=== PATIENT | male | born 1955 | race Caucasian/White ===

== ENCOUNTER 2022-03-30 07:33 | Outpatient (CLI) | payer BC, SELFPAY ==
[2022-03-30 13:48] LABS: Uric Acid* 6.5 mg/dL (2.2-8.4)
[2022-03-30 15:11] LABS: Albumin* 4.3 g/dL (3.3-5.0); Chloride* 105 mmol/L (96-114)
[2022-03-30 15:12] LABS: Potassium* 4.3 mmol/L (3.6-5.1); Sodium* 140 mmol/L (135-149)
[2022-03-30 15:14] LABS: Aspartate Amino Transferase* 28 U/L (12-35); Blood Urea Nitrogen* 15 mg/dL (7-30); Carbon Dioxide* 24 mmol/L (20-32); Cholesterol* 154 mg/dL (90-199); Estimated Glomerular Filt Rate 82 ml/min; Glucose* 135 mg/dL (60-115); Total Protein* 7.4 g/dL (6.0-8.3)
[2022-03-30 15:15] LABS: Alanine Aminotransferase* 26 U/L (4-50); Alkaline Phosphatase* 97 U/L (40-150); Calcium* 9.2 mg/dL (8.4-10.6); HDL Cholesterol* 30 mg/dL (>=40); LDL Cholesterol Calculated 81 mg/dL (<100); Triglycerides* 215 mg/dL (40-149)
[2022-03-30 15:44] LABS: PSA Screen* 1.51 ng/mL (0.10-4.00)
== END 2022-03-30 07:34 | disposition home or self-care (01) ==
PROVIDERS: PCP Family Medicine; Visit Provider Family Medicine
DX: Z00.00 Encounter for general adult medical examination without abnormal findings (principal); M10.9 Gout, unspecified; N40.1 Benign prostatic hyperplasia with lower urinary tract symptoms; R35.1 Nocturia; Z12.5 Encounter for screening for malignant neoplasm of prostate; R73.09 Other abnormal glucose; E66.01 Morbid (severe) obesity due to excess calories; I10 Essential (primary) hypertension
CPT/HCPCS: 80053; 80061; 84153; 84550

== ENCOUNTER 2023-04-30 07:45 | Outpatient (CLI) | payer BC, SELFPAY | END 2023-04-30 07:46 | disposition home or self-care (01) | PROVIDERS: PCP Family Medicine; Visit Provider Family Medicine | DX: E78.2 Mixed hyperlipidemia (principal); Z12.5 Encounter for screening for malignant neoplasm of prostate; E11.9 Type 2 diabetes mellitus without complications; Z11.59 Encounter for screening for other viral diseases | CPT/HCPCS: 80053; 80061; 82043; 82570; 86803; G0103 ==

== ENCOUNTER 2023-05-03 09:46 | Outpatient (RCR) | payer BC, SELFPAY ==
[2023-05-03 07:44] VITALS: BMI 55.0
[2023-05-03 12:38] VITALS: BMI 55.0
--- NOTE | 2023-05-03 13:56 | OT.OPLE2 ---
OT Outpatient Lymphedema Eval* OT Outpatient Lymphedema Eval* Start: 05/03/23 07:43 Freq: Status: Active Protocol: Document 05/03/23 07:44 LINDA (Rec: 05/03/23 12:38 LINDA [id number]) E-signed By Debbie Vasquez OTR/L, CLT OT Outpatient Evaluation Details Type Type Eval Complexity Medium Insurance Information Insurance Information Insurance Information Blue [employer] Insurance Information Comments PATIENT DOES NOT HAVE MEDICARE Height and Weight Height Height 189.23 cm Weight Weight 196.859 kg Weight Measurement Method Per H & P BMI Body Mass Index (kg/m?) 55.0 BMI Classification Extreme Obesity Obesity Class III OT OP Lymphedema Evaluation Current Condition/Medical Diagnosis Referring Provider Dr. Mali Villanueva Treatment Diagnosis Lymphedema, I89.0 Date Of Onset Chronic Other Precautions Allergies (copied from chart) bacitracin Allergy (Mild, Verified 04/30/23 10:56); neomycin Allergy (Mild, Verified 04/30/23 10:56) dermatitis; polymyxin B Allergy (Mild, Verified 10:56); probenecid Allergy (Mild, Verified 04/30/23 10:56 ) Cramping of the Muscles furosemide Adverse Reaction ( Severe, Verified 04/30/23 10: 56) swelling in legs, stinging sensation Medical History Medical History Comments Hemoglobin A1c 6.4 % on: 04/30 E66.01 - Morbid (severe) obesity due to excess calories (ICD-10)- Body mass index [ BMI] 50.0-59.9 Gout (Acute 07/29/09) M10.9 - Gout, unspecified (ICD -10) New onset type 2 diabetes mellitus (Acute)-Type 2 diabetes mellitus without complications (ICD-10) Lymphedema (Acute) Aortic dilatation (Acute) 2019 , 4.2 cm- Aortic ectasia, unspecified site (ICD-10) E78.5 - Hyperlipidemia, unspecified (ICD-10) Obstructive sleep apnea syndrome (Acute)-unsure when last sleep study, uses cpap Morbid obesity (Acute 09/24/12 )- obesity due to excess calories (ICD-10) Hypertension (Acute 07/29/09)- Essential (primary) hypertension (ICD-10) Heart murmur (Acute 05/13/13) likely 2/2 rheumatic fever Benign prostatic hyperplasia w /nocturia (Acute 04/09/13)- Benign prostatic hyperplasia w / lower urinary tract symptoms (ICD-10) Allergic rhinitis (Acute) Atrial fibrillation (Acute)- Unspecified atrial fibrillation (ICD-10) residential (current) use of anticoagulants (Acute) Medications Medications allopurinol 300 mg PO BID atenolol 100 mg PO BID compression stockings, knee length, x-lrg fluticasone propionate 50 mcg/ actuation 1 - 2 intranasal DAILY hydrochlorothiazide 12.5 mg PO QAM indomethacin 50 mg PO TID PRN lisinopril 40 mg PO DAILY mupirocin 2% 1 applic topical BID PRN simvastatin 20 mg PO Bedtime tamsulosin 0.8 mg (2 x 0.4 mg) PO DAILY warfarin 3 mg See Protocol PO DAILY Contraindications Contraindications General Family History Family History of Lymphedema No 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 Current Work Status Comments 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, 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 [place] Subjective Subjective I work too many hours to come into the clinic for therapy sessions I'll order the compression socks you recommend online Living Situation Current Living Situation Home With Spouse Or SO Current Living Situation Comments 2 Adult sons, Malcolm and Navjot Patient Difficulties Difficulties With Any Of The Following Walking,Dressing,Reaching Feet & Toes,Bathing/Showering Impairments Impairments Loss of Mobility,Difficulties With ADLs,Limb Heaviness,Poor Clothing Fit Problem List Problem List Limited Knowledge of Lymphedema Treatment/Condition /Precautions,Limited Knowledge of Skin Care & Infection Precautions,Significant Risk For Infection For Lymphedema Related Complications,Does Not Have a HEP,Does Not Know How To Bandage For Limb Reduction, Does Not Have Appropriate Compression Garments For LT Management,Presents With Increased Fall Risk Secondary To Lymphedema,Presents With Impaired Mobility/ROM Exercise History Does Patient Exercise Regularly No Pain Pain No ROM/Strength ROM/Strength Comments 4+/5 bilaterally Physically patient is strong but has very poor muscle endurance Previous Treatment Previous Treatment For Swelling/ Compression Garment,Elevation Lymphedema Previous Treatment/Current Home Program Patient reports that elevating his legs doesn't change the swelling in his legs. He has tried wearing compression, as it was recommended by his PCP but found it uncomfortable. Most likely, patient was not in the correct size garment. Compression History Does Patient Currently Wear Compression No During Daytime Does Patient Currently Wear Compression No At Night Current Swelling (Location/Pitting/Texture) Pitting Scale: 0 = No pitting 1+ Tissue returns to normal almost immediately 2+ Tissue returns after 15-30 seconds 3+ Tissue returns after 1-1/2 minutes 4+ Tissue returns after 2-3 minutes N/A Tissue no longer pits due to induration Tissue texture: Soft or indurated Clinical Presentation Area SKIN: Erythematous to violaceous discoloration on bilateral lower extremities extending to above the knee, no ulcerations present currently, toenails are thick but not ingrown, skin is dry Triggering Event & Start Date of Chronic Swelling/Lymphedema Clinical Presentation Pitting/Texture Pitting +2 on the dorsum of bilateral feet, +3 at the ankles and then past the ankles patients tissue no longer pits due to induration Skin Changes Hemosiderin Staining,Fibromas, Hyperkeratosis,Papillomas, Stasis Dermatitis,Fibrosis, Limited Skin Mobility Capillary Refill Slow Swelling Comments Measurements 10 cm up from ankle was the smallest area of the leg and right at the spot the top of the sock line sat which was indented. Type of Swelling Secondary Staging Staging Stage 2 Circumferential Measurements Lower Extremity Left Lower Extremity Great Toe (in cm) 9.8 MTP (in cm) 28.1 Arch (in cm) 30.3 Ankle (in cm) 36.7 10 cm above Calcaneus Measurement 34.3 20 cm above Calcaneus Measurement 49.1 30 cm above Calcaneus Measurement 50.2 40 cm above Calcaneus Measurement 46.1 Total Girth in cm 284.6 LE Volume D 1398.29 LE Volume E 1961.76 LE Volume F 1846.05 Lower Extremity Volume Total in cm 5,206.10 Right Lower Extremity Great Toe (in cm) 9.9 MTP (in cm) 28.3 Arch (in cm) 30 Ankle (in cm) 36.5 10 cm above Calcaneus Measurement 34.2 20 cm above Calcaneus Measurement 49 30 cm above Calcaneus Measurement 50 40 cm above Calcaneus Measurement 46 Total Girth in cm 283.9 LE Volume D 1391.66 LE Volume E 9 LE Volume F 1834 Lower Extremity Volume Total in cm 5,174.66 Assessment Assessment 68-year-old male seen by his PCP, Dr. Mali Villanueva on 04/30/23 for annual physical. He was last seen in March of 2022 at which point he established care for his AFib, lymphedema and some shortness of breath. Per the provider note, ?the patient was supposed to follow-up shortly but did not. He was supposed to see Cardiology in Lymphedema Clinic, he did not do that either. He is very nonchalant about his own medical care. He previously was referred to the lymphedema clinic but never went. Made another referral today (04/30/23 )?. Per provider note, ?he did not tolerate furosemide or compression stockings. [place] the furosemide made his swelling much worse. He had oozing from his ulcerations on his shins. He does not like the frequency of urination, either. He does all right with the hydrochlorothiazide. He does not follow a diabetic diet, he does not follow a dash diet, he does not check his blood pressures at home?. 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 He enjoys his work, likes his boss and does not have a plan to retire any time soon. Patient was pleasant and receptive to information and teaching during evaluation . Patient would be an excellent candidate for a lymphedema pump at home, patient stated that he wants to start with different compression stockings (will order the ones that I recommended today) and reach out if he wants to try/trial different interventions/ options for treatment. Patient Goals Patient Goals Less swelling in my legs Less ache in my legs Easier time walk/moving Click To Default Short Term Goals Standard Goals Short Term Goals Goal: Patient will understand lymphedema precautions to decrease risk of infection and further lymphedema related complications Goal: Patient will experience decreased pitting edema in order to improve tissue health and decrease risk for infection/cellulitis Goal: Patient will perform HEP with minimal assistance in order to improve lymphatic flow and venous return Goal: Patient will perform self MLD protocol with minimal assistance to help reduce swelling and improve ROM and mobility Click To Default Group Home Goals Standard Goals Group Home Goals Goal: Patient will experience increased ROM and mobility in order to improve safety and independence with IADLs and general mobility Goal: Patient will be independent with donning and doffing of compression garments which will enable regular daily garment wear Treatment Plan Treatment Plan Evaluation,Edema Control,Joint Mobilization,Manual Therapy, Therapeutic Exercise,Self-Care /Home Management,Education Expected Frequency As Needed Expected Duration 8-10 Weeks Certification Certification Statement I Certify That: Therapy Services Provided, Therapy Plan Established, Therapy Plan Reviewed Certification Information Clinic ID # [id number] Initial Certification Date 05/03/23 Recertification Due Date 08/31/23 Provider Signature Shows Agreement With POC & Medical Necessity Physician Comment/Change Comment or Changes Physician NPI Number #
== END 2023-08-31 23:59 | disposition home or self-care (01) ==
PROVIDERS: PCP Family Medicine; Visit Provider Family Medicine
DX: I89.0 Lymphedema, not elsewhere classified (principal); E66.01 Morbid (severe) obesity due to excess calories; Z68.43 Body mass index [BMI] 50.0-59.9, adult; Z51.89 Encounter for other specified aftercare
CPT/HCPCS: 97166

== ENCOUNTER 2023-06-01 07:49 | Outpatient (CLI) | payer BC, SELFPAY ==
--- NOTE | 2023-06-01 08:15 | CRLHL7_ITS ---
For Patients: As a result of the Century Cures Act, medical imaging exams and procedure reports are released immediately into your electronic medical record. You may view this report before your referring provider. If you have questions, please contact your health care provider. Examination: US abdominal aorta Indication: AORTIC ECTASIA Technique: Iglesias scale and color Doppler images of the aorta and common iliac arteries are obtained. Exam is limited by overlying bowel gas. Comparison: None Findings: Proximal aorta: Not visualized. Mid aorta: 2.3 x 2.4 cm Distal aorta: 2.3 x 2.5 cm Right common iliac artery: Not visualized. Left common iliac artery: Not visualized. Impression: Limited evaluation of the aorta due to overlying bowel gas. No aneurysm within the mid and distal abdominal aorta. Dictated by Jerald Willett MD @ 06/01/2023 11:58:49 AM (Electronically Signed)
== END 2023-06-01 07:50 | disposition home or self-care (01) ==
LOC: US 07:50
PROVIDERS: PCP Family Medicine; Visit Provider Family Medicine
DX: I77.819 Aortic ectasia, unspecified site (principal)
CPT/HCPCS: 76706

== ENCOUNTER 2024-05-12 10:14 | Outpatient (CLI) | payer BC, SELFPAY | END 2024-05-12 10:15 | disposition home or self-care (01) | PROVIDERS: PCP Family Medicine; Visit Provider Family Medicine | DX: E11.65 Type 2 diabetes mellitus with hyperglycemia (principal); I10 Essential (primary) hypertension; E78.2 Mixed hyperlipidemia; E66.01 Morbid (severe) obesity due to excess calories; Z68.43 Body mass index [BMI] 50.0-59.9, adult; I48.11 Longstanding persistent atrial fibrillation; Z12.5 Encounter for screening for malignant neoplasm of prostate | CPT/HCPCS: 80053; 80061; 82043; 82570; 82607; G0103 ==